=== PATIENT | female | born 1980 | race Hispanic/Latino ===

== ENCOUNTER 2021-11-30 05:51 | Day surgery (SDC) | payer BC ==
[2021-11-24 13:26] VITALS: BMI 21.2
[2021-11-30] MEDS ORDERED: Bupivacaine 0.25% 10 ML VIAL ONE ×3 (06:38→13:20)
[2021-11-30] MEDS ORDERED: Lidocaine 1% w/Epinephrine 1:100K 30 ML VIAL ONE (06:38)
[2021-11-30] MEDS ORDERED: Fentanyl 100 MCG/2 ML VIAL ONE (06:55)
[2021-11-30] MEDS ORDERED: Lidocaine 2% Jelly 5 ML TUBE ONE (06:55)
[2021-11-30] MEDS ORDERED: Midazolam HCl 2 mg/2 ml Vial ONE (07:25)
[2021-11-30] MEDS ORDERED: ceFAZolin 2 GM/Dextrose 50 ML IVPB ONE (07:26)
[2021-11-30] MEDS ORDERED: HYDROcodone/Acetaminophen 5/325 mg Tablet ONE (09:23)
[2021-11-30] MEDS ORDERED: Ondansetron ODT 4 MG TAB ONE (10:16)
== END 2021-11-30 10:32 | disposition home or self-care (01) ==
LOC: SDC 05:51
PROVIDERS: ATTEND Surgery
PROC: 0YU54JZ Supplement Right Inguinal Region with Synthetic Substitute, Percutaneous Endoscopic Approach (ICD-10-PCS; principal; 2021-11-30)
DX: K40.90 Unilateral inguinal hernia, without obstruction or gangrene, not specified as recurrent (principal); Z88.2 Allergy status to sulfonamides
CPT/HCPCS: 93005; 93010; C1781; J0690; J2250; J3010; Q0162; S0020

== ENCOUNTER 2025-04-21 07:59 | Outpatient (CLI) | payer BC | END 2025-04-21 08:00 | disposition home or self-care (01) | LOC: BICMAMMO 07:59 | PROVIDERS: ATTEND Obstetrics & Gynecology | DX: Z12.31 Encounter for screening mammogram for malignant neoplasm of breast (principal) | CPT/HCPCS: 77063; 77067 ==